=== PATIENT | male | born 1985 | race Caucasian/White ===

== ENCOUNTER 2020-07-31 06:57 | Day surgery (SDC) | payer OTHER ==
[2020-07-31] MEDS ORDERED: Lactated Ringers 1,000 ML IV SCH (07:00)
[2020-07-31] MEDS ORDERED: Propofol 200 MG/20 ML SDV ONE ×2 (08:08→08:15)
[2020-07-31] MEDS ORDERED: fentaNYL 100 MCG/2 ML SDV ONE (08:08)
--- NOTE | 2020-08-01 10:07 | OR ---
DATE OF SURGERY: 07/31/2020. REFERRING PROVIDER: Yesy Ji MD PRE-OPERATIVE DIAGNOSES: 1. Right abdominal fullness. 2. Chronic constipation. The patient did have some melena back in April. He denies any history of diarrhea. He did have COVID infection back in January and gastrointestinal problems started around March. POST-OPERATIVE DIAGNOSES: 1. Minimal proctitis noted. This could be prep induced. Rectal biopsy x2 bites taken. 2. Mildly tortuous right colon which may explain some slower delayed motility on the right side. 3. Normal-appearing distal ileum. PROCEDURE: Colonoscopy with biopsy x1 site (rectum). SURGEON: Bo Torres M.D. ANESTHESIA: Monitored anesthesia care. BOWEL PREP: Good. Conor is a 35-year-old male who was brought to the endoscopy suite after discussing risks and benefits of the procedure. Informed consent was obtained for conscious sedation and colonoscopy with or without biopsy and/or polypectomy. We also discussed possibility of missed lesions. Pre-procedure exam was unremarkable. IV, oxygen, and monitors were placed. The patient was placed in the left lateral decubitus position. Sedation was administered and a digital rectal exam was performed and unremarkable. Colonoscope was passed into the rectum and slowly advanced all the way to the cecum. Cecum was viewed and photographed. Ileocecal valve was intubated and distal ileum was normal in appearance. The colonoscope was slowly withdrawn and the mucosa was closed observed in a direct circumferential manner. The ascending colon was unremarkable except for being mildly tortuous. The transverse colon was unremarkable. The descending colon was unremarkable. The sigmoid colon was unremarkable. Rectal mucosa did reveal some minimal proctitis. Cold biopsy x2 bites taken. Retroflexion was performed and rectal mucosa otherwise unremarkable. Scope was removed. The patient tolerated the procedure well. The patient was monitored until that baseline status. Discharge instructions were reviewed and the patient was discharged in good condition. COMPLICATIONS: None. TOTAL TIME: 21 minutes. ESTIMATED BLOOD LOSS: Less than 1 mL. RECOMMENDATIONS/FOLLOW-UP: We will await results of biopsies and send letter with results and any recommendations. I would like to kindly thank Dr. Ji for this referral. DMB: 07/31/2020 09:02:51 MODL: 07/31/2020 12:09:55 /[id number]
== END 2020-07-31 09:35 | disposition home or self-care (01) ==
LOC: VM.SDS 06:57
PROVIDERS: ATTEND Family Medicine
DX: K52.89 Other specified noninfective gastroenteritis and colitis (principal); K59.09 Other constipation; K62.89 Other specified diseases of anus and rectum; K63.89 Other specified diseases of intestine; Z86.16 Personal history of COVID-19; Z20.822 Contact with and (suspected) exposure to COVID-19; Z79.899 Other long term (current) drug therapy
CPT/HCPCS: 00811; 45380; 87635; J2704; J3010; J7120; U0002

== ENCOUNTER 2023-05-09 22:32 | Emergency (ER) | payer OTHER ==
[2023-05-09 23:09] LABS: APPEARANCE,URINE CLEAR (CLEAR); BILIRUBIN,URINE NEGATIVE (NEGATIVE); COLOR,URINE YELLOW (YELLOW); GLUCOSE,URINE NEGATIVE (NEGATIVE); KETONES,URINE NEGATIVE (NEGATIVE); LEUKOCYTE ESTERASE,URINE NEGATIVE (NEGATIVE); NITRITE,URINE NEGATIVE (NEGATIVE); OCCULT BLOOD,URINE NEGATIVE (NEGATIVE); PH,URINE 6.5 (5.0-8.0); PROTEIN,URINE NEGATIVE (NEGATIVE); UROBILINOGEN,URINE 0.2 EU/dL (0.2)
[2023-05-09 23:09] LABS: BASOPHILS PERCENT AUTO 0.2 % (0.2-1.2); EOSINOPHILS ABSOLUTE AUTO 0.1 x10^3/uL (0.0-0.5); EOSINOPHILS PERCENT AUTO 0.9 % (0.0-4.0); HEMATOCRIT 40.7 % (40.0-52.0); HEMOGLOBIN 13.6 g/dL (14.0-18.0); IMMATURE GRAN ABSOLUTE AUTO 0.01 x10^3/uL (0.00-0.07); LYMPHOCYTES ABSOLUTE AUTO 1.3 x10^3/uL (1.0-4.8); LYMPHOCYTES PERCENT AUTO 14.3 % (25.0-50.0); MEAN CORPUSCULAR HEMOGLOBIN 30.7 pg (26.0-32.0); MEAN CORPUSCULAR HGB CONC 33.4 g/dL (32.0-36.0); MEAN CORPUSCULAR VOLUME 91.9 fL (78.0-93.0); MONOCYTES ABSOLUTE AUTO 0.8 x10^3/uL (0.0-0.8); MONOCYTES PERCENT AUTO 9.6 % (2.0-11.0); NEUTROPHILS ABSOLUTE AUTO 6.6 x10^3/uL (1.8-7.7); NEUTROPHILS PERCENT AUTO 74.9 % (50.0-80.0); PLATELET COUNT,PLT 211 x10^3/uL (130-400); RED BLOOD CELL COUNT 4.43 x10^6/uL (4.5-6.0); WHITE BLOOD CELL COUNT,WBC 8.8 x10^3/uL (4.0-10.0)
[2023-05-09 23:25] LABS: A/G RATIO 1.21; ALANINE AMINOTRANSFERASE,ALT 18 U/L (16-63); ALKALINE PHOSPHATASE 82 U/L (46-116); ASPARTATE AMNIOTRANSFERASE,AST 13 U/L (15-37); BILIRUBIN TOTAL 0.9 mg/dL (0.2-1.0); BLOOD UREA NITROGEN,BUN 18 mg/dL (7-18); C-REACTIVE PROTEIN 2.81 mg/dL (<=0.50); CALCIUM 9.2 mg/dL (8.5-10.1); CARBON DIOXIDE,CO2 26 mmol/L (21-32); CHLORIDE,CL 105 mmol/L (98-107); CREATININE 1.2 mg/dL (0.70-1.30); GLUCOSE RANDOM 108 mg/dL (70-99); LIPASE 33 U/L (19-71); PROTEIN TOTAL,TP 7.3 g/dL (6.4-8.2); SODIUM,NA 142 mmol/L (136-145)
[2023-05-09 23:26] LABS: ESTIMATED GFR 78 mL/min (>=60)
[2023-05-10] MEDS: Iopamidol 612 MG/ML 100 ML Bottle IVPUSH ONE (00:26)
[2023-05-10] MEDS: Amoxicillin/Clavulanate K 875-125 MG Tab PO ONE (01:19)
== END 2023-05-10 01:20 | disposition home or self-care (01) ==
LOC: VM.ED 22:32
DX: K57.32 Diverticulitis of large intestine without perforation or abscess without bleeding (principal); I11.0 Hypertensive heart disease with heart failure; I50.9 Heart failure, unspecified; Z79.899 Other long term (current) drug therapy
CPT/HCPCS: 36415; 74177; 80053; 81003; 83690; 85025; 86140; 99284; A9270-GY; Q9967

== ENCOUNTER 2023-07-16 12:34 | Emergency (ER) | payer OTHER ==
[2023-07-16] MEDS ORDERED: Ibuprofen 200 MG Tab PO ONE (13:13)
== END 2023-07-16 14:35 | disposition home or self-care (01) ==
LOC: VM.ED 12:34
DX: S90.32XA Contusion of left foot, initial encounter (principal); I50.9 Heart failure, unspecified; W20.8XXA Other cause of strike by thrown, projected or falling object, initial encounter
CPT/HCPCS: 73620-LT; 99283